=== PATIENT | female | born 1950 | race Caucasian/White ===

== ENCOUNTER 2016-07-04 16:52 | Inpatient (IN) | payer MEDICARE ==
[~2016-07-04] VITALS: Ht 157.5 cm; Wt 112.5 kg
[~2016-07-04 16:52] MED LIST: ACLI400A2 INH; ALBU0.63 NEB; ASPI325T4 PO; ATEN25TA PO; CHOL200012 PO; CIPR500T3 PO; FURO40TA6 PO; GLIM2TAB2 PO; INSU100V8 SQ; METF10002 PO; OMEG1000 PO; OXYC15TA PO; POTA10TA12 PO; POTA20TA6 PO; PRAV20TA2 PO; PRAV80TA2 PO; PREG75CA PO; VITA1CAP PO
[2016-07-04] MEDS ORDERED: ONDANSETRON 2MG/ML, 2ML ONE (17:07)
[2016-07-04 17:22] LABS: HEMOGLOBIN 11.4 g/dL (11.7-16.4)
[2016-07-04] MEDS ORDERED: MORPHINE SULFATE 4 MG/ML, 1ML IVPush PRN (17:30)
[2016-07-04] MEDS ORDERED: SODIUM CHLORIDE 0.9% 1,000ML IVBOLUS ONE (17:30)
[2016-07-04] MEDS ORDERED: ONDANSETRON 2MG/ML, 2ML IVPush ONE (17:30)
[2016-07-04] MEDS ORDERED: SODIUM CHLORIDE FLUSH 10ML SYR IVF ONE ×2 (17:30)
[2016-07-04 17:35] LABS: BLOOD UREA NITROGEN 17 mg/dL (7-18)
[2016-07-04 17:38] LABS: ASPARTATE AMINO TRANSFERASE 10 U/L (15-37)
[2016-07-04] MEDS ORDERED: MORPHINE SULFATE 4 MG/ML, 1ML ONE (17:48)
[2016-07-04] MEDS ORDERED: OMNIPAQUE 350 MG/ML, 100ML BOTTLE ONE (18:07)
[2016-07-04] MEDS ORDERED: SODIUM CHLORIDE 0.9% 1,000 ML IV ONE (18:38)
[2016-07-04] MEDS ORDERED: SODIUM CHLORIDE FLUSH 10ML SYR IVF PRN (19:00)
[2016-07-04] MEDS ORDERED: LORazepam 2 MG/ML, 1ML IVPush PRN (19:30)
[2016-07-04] MEDS ORDERED: BISACODYL 10 MG SUPP PR PRN (19:30)
[2016-07-04] MEDS ORDERED: METOCLOPRAMIDE 5 MG/ML, 2ML IVPush PRN (19:30)
[2016-07-04] MEDS ORDERED: PROMETHAZINE 25 MG/ML, 1ML IM PRN (19:30)
[2016-07-04] MEDS: ENOXAPARIN 40 MG/0.4 ML SQ SCH (20:27)
[2016-07-04] MEDS: PREGABALIN 150 MG CAPSULE PO SCH (20:28)
[2016-07-04] MEDS: HYDROmorphone 2 MG/ML, 1ML IV PRN (20:41)
[2016-07-04 21:39] LABS: PATH.CAST-FLAG NOT PRESENT; SPERM-FLAG NOT PRESENT; SRC-FLAG NOT PRESENT; XTAL-FLAG NOT PRESENT; YLC-FLAG NOT PRESENT
[2016-07-04] MEDS: ONDANSETRON 2MG/ML, 2ML IVP PRN (22:15)
[2016-07-04] MEDS: LACTATED RINGERS 1,000 ML IV SCH (22:19)
[2016-07-05] MEDS: HYDROmorphone 2 MG/ML, 1ML IV PRN ×6 (00:37→23:35)
[2016-07-05] MEDS: INSULIN REGULAR 100 UNITS/ML, 3ML VIAL SQ-INSULIN SCH ×5 (00:40→20:05)
[2016-07-05 01:27] VITALS: BP 144/87
[2016-07-05] MEDS: ONDANSETRON 2MG/ML, 2ML IVP PRN ×3 (04:28→23:38)
[2016-07-05 05:06] VITALS: BP 163/84
[2016-07-05] MEDS: LACTATED RINGERS 1,000 ML IV SCH (05:23)
[2016-07-05 05:48] LABS: HEMOGLOBIN 10.1 g/dL (11.7-16.4)
[2016-07-05 05:52] LABS: BLOOD UREA NITROGEN 16 mg/dL (7-18)
[2016-07-05 07:42] VITALS: BP 142/80
[2016-07-05] MEDS: ATENOLOL 25 MG TABLET PO SCH (08:06)
[2016-07-05] MEDS ORDERED: MAGNESIUM SULFATE PMX 2GM/50ML 50 ML IV ONE (09:30)
[2016-07-05] MEDS: OxyconTIN ER 15 MG TAB.ER PO SCH (09:50)
[2016-07-05] MEDS: FLUTICASONE/VILANTEROL 200-25MCG/INH INH SCH (09:51)
[2016-07-05 13:54] VITALS: BP 141/85
[2016-07-05] MEDS ORDERED: ACETAMINOPHEN 325 MG TABLET PO PRN (17:00)
[2016-07-05 18:53] VITALS: BP 138/78
[2016-07-05] MEDS: PREGABALIN 150 MG CAPSULE PO SCH (20:05)
[2016-07-05] MEDS: ENOXAPARIN 40 MG/0.4 ML SQ SCH (20:05)
[2016-07-06 02:21] VITALS: BP 135/71
[2016-07-06 06:16] LABS: BLOOD UREA NITROGEN 10 mg/dL (7-18); TOTAL IRON BINDING CAPACITY 324 mcg/dL (250-450)
[2016-07-06] MEDS: HYDROmorphone 2 MG/ML, 1ML IV PRN ×2 (06:24→11:33)
[2016-07-06] MEDS: FLUTICASONE/VILANTEROL 200-25MCG/INH INH SCH (07:42)
[2016-07-06] MEDS: INSULIN REGULAR 100 UNITS/ML, 3ML VIAL SQ-INSULIN SCH ×4 (07:42→21:00)
[2016-07-06] MEDS: ATENOLOL 25 MG TABLET PO SCH (07:43)
[2016-07-06 07:45] VITALS: BP 125/80
[2016-07-06] MEDS: OxyconTIN ER 15 MG TAB.ER PO SCH (09:10)
[2016-07-06] MEDS: ONDANSETRON 2MG/ML, 2ML IVP PRN ×2 (11:51→19:37)
[2016-07-06 12:30] VITALS: BP 127/76
[2016-07-06] MEDS: OXYcodone IR 5MG TABLET PO PRN ×3 (15:22→23:46)
[2016-07-06 18:51] VITALS: BP 148/81
[2016-07-06] MEDS: PREGABALIN 150 MG CAPSULE PO SCH (21:00)
[2016-07-06] MEDS: ENOXAPARIN 40 MG/0.4 ML SQ SCH (21:00)
[2016-07-06] MEDS ORDERED: MAGNESIUM HYDROXIDE 8%, 30ML UDC PO PRN (23:00)
[2016-07-06] MEDS: DOCUSATE 100 MG CAPSULE PO SCH (23:46)
[2016-07-07 01:08] VITALS: BP 126/75
[2016-07-07] MEDS: OXYcodone IR 5MG TABLET PO PRN ×2 (05:54→13:21)
[2016-07-07] MEDS: ONDANSETRON 2MG/ML, 2ML IVP PRN ×2 (06:00→13:27)
[2016-07-07 07:57] VITALS: BP 144/79
[2016-07-07] MEDS: DOCUSATE 100 MG CAPSULE PO SCH (09:09)
[2016-07-07] MEDS: FLUTICASONE/VILANTEROL 200-25MCG/INH INH SCH (09:09)
[2016-07-07] MEDS: OxyconTIN ER 15 MG TAB.ER PO SCH (09:09)
[2016-07-07] MEDS: ATENOLOL 25 MG TABLET PO SCH (09:09)
[2016-07-07] MEDS: INSULIN REGULAR 100 UNITS/ML, 3ML VIAL SQ-INSULIN SCH ×2 (09:15→13:02)
[2016-07-07] MEDS ORDERED: POLYETHYLENE GLYCOL 17 GM PACKET PO ONE (10:00)
[2016-07-07 12:29] VITALS: BP 166/79
== END 2016-07-07 17:01 | disposition home or self-care (01) | DRG 438 ==
LOC: ED 18:37 → EDIP 18:38 → SUATTDRO 18:50 → 3NE 19:55
DX: K85.90 Acute pancreatitis without necrosis or infection, unspecified (principal); N17.0 Acute kidney failure with tubular necrosis; F11.20 Opioid dependence, uncomplicated; Z68.42 Body mass index [BMI] 45.0-49.9, adult; D63.8 Anemia in other chronic diseases classified elsewhere; E11.42 Type 2 diabetes mellitus with diabetic polyneuropathy; E11.65 Type 2 diabetes mellitus with hyperglycemia; E66.01 Morbid (severe) obesity due to excess calories; E78.5 Hyperlipidemia, unspecified; E86.0 Dehydration; I25.2 Old myocardial infarction; G89.29 Other chronic pain; I10 Essential (primary) hypertension; I25.10 Atherosclerotic heart disease of native coronary artery without angina pectoris; J44.9 Chronic obstructive pulmonary disease, unspecified; K59.00 Constipation, unspecified; Z87.440 Personal history of urinary (tract) infections; Z87.891 Personal history of nicotine dependence; Z88.8 Allergy status to other drugs, medicaments and biological substances; Z79.4 Long term (current) use of insulin; Z82.49 Family history of ischemic heart disease and other diseases of the circulatory system; Z82.5 Family history of asthma and other chronic lower respiratory diseases; Z95.5 Presence of coronary angioplasty implant and graft; Z99.81 Dependence on supplemental oxygen; Z79.899 Other long term (current) drug therapy; Z79.84 Long term (current) use of oral hypoglycemic drugs
CPT/HCPCS: 36415; 74177; 74181; 80048; 80053; 81001; 82607; 82746; 82962; 83540; 83550; 83605; 83690; 83735; 84100; 84478; 85025; 87086; 87147; 96374; J1170; J1650; J1815; J2405; Q9967; J2765; J3475; J7030; J7120

== ENCOUNTER 2017-08-02 13:10 | Emergency (ER) | payer MEDICARE ==
[~2017-08-02] VITALS: Ht 157.5 cm; Wt 96.0 kg
[~2017-08-02 13:10] MED LIST changes: +AMIO200T42 PO; +ASPI-515 PO; +ASPI325T17 PO; -ASPI325T4 PO; +ATOR-2 PO; -CHOL200012 PO; +CHOL200074 PO; +CLOP75TA PO; +HYDR25TA6 PO; +IPRA0.2S35 INH; +LOSA25TA5 PO; +METO50TA82 PO; +OMEP-110 PO; +PAIN MEDICATION; +RIVA15TA PO; +TAPE100T8 PO; +TAPE50TA9 PO
[2017-08-02 13:57] LABS: BASOPHILS # (AUTO) 0.03 x10^3/uL (0-0.1); BASOPHILS % (AUTO) 1 % (0-1); EOSINOPHILS # (AUTO) 0.07 x10^3/uL (0-0.4); EOSINOPHILS % (AUTO) 1 % (1-7); LYMPHOCYTES # (AUTO) 0.95 x10^3/uL (1-3.4); LYMPHOCYTES % (AUTO) 19 % (22-44); MD NO; MEAN CORPUSCULAR HEMOGLOBIN 30.6 pg (27.0-34.8); MEAN CORPUSCULAR HGB CONC 32.8 g/dL (32.4-35.8); MEAN CORPUSCULAR VOLUME 93.2 fL (80-100); MEAN PLATELET VOLUME 9.3 fL (7.4-10.4); MONOCYTES # (AUTO) 0.53 x10^3/uL (0.2-0.8); MONOCYTES % (AUTO) 11 % (2-9); NEUTROPHILS # (AUTO) 3.45 x10^3/uL (1.8-6.8); NEUTROPHILS % (AUTO) 69 % (42-75); PLATELET COUNT 219 x10^3/uL (130-400); RED BLOOD COUNT 2.83 x10^6/uL (3.82-5.3)
[2017-08-02] MEDS ORDERED: SODIUM CHLORIDE FLUSH 10ML SYR IVF ONE (14:00)
[2017-08-02] MEDS ORDERED: SODIUM CHLORIDE 0.9% 1,000ML IVBOLUS ONE (14:00)
[2017-08-02 14:10] LABS: ALBUMIN 3.2 g/dL (3.4-5.0); ANION GAP 3 mmol/L (5-15); CALCIUM 9.4 mg/dL (8.5-10.1); CHLORIDE 103 mmol/L (98-107); CREATININE 1.65 mg/dL (0.55-1.02)
[2017-08-02 14:14] LABS: TROPONIN I < 0.015 ng/mL (0.000-0.045)
[2017-08-02] MEDS ORDERED: OXYcodone 5 MG/5 ML ORAL.SOL UDC PO ONE (15:00)
[2017-08-02 15:02] VITALS: BP 128/58
[2017-08-02] MEDS ORDERED: OXYcodone/APAP 5/325MG TABLET ONE (15:13)
[2017-08-02] MEDS ORDERED: OXYcodone 5 MG/5 ML ORAL.SOL UDC ONE (15:16)
== END 2017-08-02 15:31 | disposition home or self-care (01) ==
LOC: ED 15:00
DX: R55 Syncope and collapse (principal); D53.9 Nutritional anemia, unspecified; I12.9 Hypertensive chronic kidney disease with stage 1 through stage 4 chronic kidney disease, or unspecified chronic kidney disease; N18.9 Chronic kidney disease, unspecified; Z79.4 Long term (current) use of insulin; E11.22 Type 2 diabetes mellitus with diabetic chronic kidney disease
CPT/HCPCS: 36415; 80048; 82040; 83735; 84484; 85025; 93005; 99285; J7030

== ENCOUNTER → 2017-09-04 | Outpatient (CLI) | payer MEDICARE | END | disposition home or self-care (01) | LOC: PETCFH 07:29 | PROVIDERS: ATTEND Nurse Practitioner | DX: R91.8 Other nonspecific abnormal finding of lung field (principal); R59.0 Localized enlarged lymph nodes; C78.7 Secondary malignant neoplasm of liver and intrahepatic bile duct; D38.1 Neoplasm of uncertain behavior of trachea, bronchus and lung | CPT/HCPCS: 78815; A9552 ==

== ENCOUNTER → 2017-09-12 | Outpatient (CLI) | payer MEDICARE ==
[~2017-09-12] MED LIST changes: +GADOBUTROL 10 MMOL/10 ML VIAL ONE
== END | disposition home or self-care (01) ==
LOC: RAD 11:56
PROVIDERS: ATTEND Nurse Practitioner
DX: C34.90 Malignant neoplasm of unspecified part of unspecified bronchus or lung (principal); D38.1 Neoplasm of uncertain behavior of trachea, bronchus and lung; G31.9 Degenerative disease of nervous system, unspecified
CPT/HCPCS: 70553; A9585